=== PATIENT | female | born 2000 | race Caucasian/White ===

== ENCOUNTER 2022-12-09 12:43 | Emergency (ER) | payer BC, SELFPAY ==
[2022-12-09 12:54] VITALS: BP 147/88; PULSE 80; RESP 14; TEMP 36.7; O2SAT 100
--- NOTE | 2022-12-09 14:12 | ED.EXTPRO ---
HPI - Extremity Problem General Chief complaint: Extremity Problem,Nontraumatic Stated complaint: Finger infection Time Seen by Provider: 12/09/22 13:37 Source: patient Mode of arrival: ambulatory Limitations: no limitations History of Present Illness HPI Narrative: Patient is a 22 y/o female who presents to the ED with c/o L 3rd digit pain. Patient reports she was cleaning out under her nails 2 days ago and accidentally cut her nailbed under the edge of the nail plate of her left 3rd digit. She denied any issues at first, but had throbbing pain in the tip of her finger last night. She soaked her finger this morning and noted a minimal amount of drainage from the cut. The pain has been improved since soaking her finger. She took Tylenol [employer]. She denies any difficulty bending finger, fevers, nausea. No injury. Review of Systems Review of Systems: CONSTITUTIONAL: Denies fever, chills, or sweats. GASTROINTESTINAL: Denies abdominal pain, nausea, vomiting. SKIN: See HPI. MUSCULOSKELETAL: See HPI. NEUROLOGIC: Denies numbness, or weakness. All systems reviewed & are unremarkable except as noted in HPI and below PMFSH Past Medical History Medical History (Updated 12/09/22 @ 14:41 by Daysi Prince PA-C) No pertinent past medical history Surgical History Surgical History (Updated 12/09/22 @ 14:41 by Daysi Prince PA-C) No pertinent past surgical history Social History Social History (Updated 12/09/22 @ 14:41 by Daysi Prince PA-C) Smoking status: Never smoker Exam Narrative: GENERAL: Well appearing, obese, non-toxic, in no acute distress. HEAD: Normocephalic, atraumatic. NECK: Supple. No adenopathy, no masses. RESPIRATORY: Airway patent, respirations nonlabored. Clear to auscultation bilaterally, no rales, rhonchi, wheezing. CARDIOVASCULAR: Regular rate and rhythm without murmurs, rubs, or gallops. Radial pulses 2+ and equal bilaterally. MUSCULOSKELETAL: Moves all extremities. Strength/ROM intact without gross deformities. No significant limited range of motion of movement of left fingers. Very small laceration to the distal nailbed under the distal nail edge of the left third digit. No active bleeding or drainage. Minimal erythema and swelling to distal finger tip. Very mild tenderness to palpation. No subungual hematoma. No vesicular lesions. No tenderness along flexor tendons. No fusiform swelling. SKIN: Warm, dry, normal color. No rashes. NEURO: A&O X3. Speech clear. Cranial nerves II-XII grossly intact. Steady gait. No ataxic movements. PSYCHIATRIC: Appropriate mood and affect. Normal interaction. Course Vital Signs Vital signs: Vital Signs Temperature 98.1 F 12/09/22 12:54 Pulse Rate 80 12/09/22 12:54 Respiratory Rate 14 12/09/22 12:54 Blood Pressure 147/88 H 12/09/22 12:54 Pulse Oximetry 100 12/09/22 12:54 Oxygen Delivery Room Air 12/09/22 12:54 Temperature 98.1 F 12/09/22 12:54 Pulse Rate 80 12/09/22 12:54 Respiratory Rate 14 12/09/22 12:54 Blood Pressure 147/88 H 12/09/22 12:54 Pulse Oximetry 100 12/09/22 12:54 Oxygen Delivery Room Air 12/09/22 12:54 MDM - Extremity (Nontraumatic) MDM Narrative Medical decision making narrative: Patient presented to ED with 1 day history of pain to left third digit fingertip after sustaining laceration under nail. Exam consistent with paronychia picture. Redness and swelling mild and involving distal fingertip, not involving entirety of finger pad. No findings on exam to suggest felon formation, abscess needing I&D, flexor tenosynovitis, herpetic hafsa, subungual hematoma. No injury to suggest fracture or need for imaging. Will provide antibiotics for further management as well as topical antibacterial ointment. I advised patient to continue warm soaks as she reported this did improve symptoms. Will provide hand surgery for follow-up if needed, otherwise advised f/u with PCP. Did discuss concern
== END 2022-12-09 14:30 | disposition home or self-care (01) ==
PROVIDERS: Emergency Provider Physician Assistant
DX: L03.012 Cellulitis of left finger (principal)
CPT/HCPCS: 99283